=== PATIENT | male | born 1990 | race Caucasian/White ===

== ENCOUNTER 2025-01-24 13:55 | Emergency (ER) | payer OTHER, SELFPAY ==
[2025-01-24 14:03] VITALS: BP 136/76; PULSE 76; RESP 18; TEMP 36.2; O2SAT 98; BMI 23.7
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
[2025-01-24] MEDS: TET,DIPH,PERTUSS(ACELL),VAC/PF 0.5 ML SYRINGE IM (15:16)
[2025-01-24 15:24] VITALS: PULSE 79; RESP 18; O2SAT 95
== END 2025-01-24 15:30 | disposition home or self-care (01) ==
PROVIDERS: Emergency Provider Physician Assistant Medical
DX: S42.021A Displaced fracture of shaft of right clavicle, initial encounter for closed fracture (principal); S40.211A Abrasion of right shoulder, initial encounter; V89.2XXA Person injured in unspecified motor-vehicle accident, traffic, initial encounter; Y93.89 Activity, other specified; Z23 Encounter for immunization
CPT/HCPCS: 73000; 73030; 90471; 99283; 99284; 90715